=== PATIENT | female | born 1995 | race Hispanic/Latino ===

== ENCOUNTER 2025-08-06 05:19 | Inpatient (IN) | payer MEDICAID, OTHER ==
[2025-08-06] MEDS ORDERED: Tranexamic Acid 1,000 MG/10 ML VIAL IVP PRN (06:15)
[2025-08-06] MEDS ORDERED: Diphenoxylate HCl/Atropine Tablet PO PRN ×2 (06:15)
[2025-08-06] MEDS ORDERED: Carboprost 250 MCG/ML AMP IM PRN (06:15)
[2025-08-06] MEDS ORDERED: Oxytocin 30 units/NS 500 ML 500 ML IV SCH ×2 (06:15)
[2025-08-06] MEDS ORDERED: Acetaminophen 500 MG TAB PO PRN (06:15)
[2025-08-06] MEDS ORDERED: Methylergonovine 0.2 MG/ML VIAL IM PRN (06:15)
[2025-08-06] MEDS ORDERED: Lidocaine 1% (PF) 30 ML VIAL SC PRN (06:15)
[2025-08-06] MEDS ORDERED: HYDROcodone/Acetaminophen 5/325 mg Tablet PO PRN ×3 (06:15→20:51)
[2025-08-06] MEDS ORDERED: Ondansetron PF 4 MG/2 ML Vial IVP PRN ×3 (06:15→20:51)
[2025-08-06] MEDS ORDERED: hydrALAZINE 20 MG/ML VIAL SLOW IVP PRN ×2 (06:15→20:51)
[2025-08-06 06:40] VITALS: BMI 38.9
[2025-08-06 07:18] LABS: Hematocrit 33.1 % (34.9-44.5); Hemoglobin 11.2 g/dL (12.0-15.5); Mean Corpuscular Hemoglobin 26.9 pg (27.0-33.0); Mean Corpuscular Volume 79.4 fL (81.6-98.3); Platelet Count 207 10x3/uL (150-450); Red Blood Cell (RBC) Count 4.17 10x6/uL (3.90-5.03); White Blood Cell (WBC) Count 9.84 10x3/uL (3.5-10.5)
[2025-08-06] MEDS: Oxytocin 30 units/NS 500 ML 500 ML IV SCH (07:30)
[2025-08-06 07:32] LABS: Syphilis Antibody Index 0.09 S/CO (<1.00 Non-Reactive)
[2025-08-06 07:34] LABS: Hep B Surf Ag - L&D Non-Reactive S/CO (NonReactive)
[2025-08-06] MEDS: fentaNYL/Ropivacaine Epidural 100 ML ONE (11:00)
[2025-08-06] MEDS ORDERED: diphenhydrAMINE 50 MG/ML VIAL IVP PRN (12:49)
[2025-08-06] MEDS ORDERED: fentaNYL 2 mcg/Ropivacaine 0.2% Epidural 100 ML CADD EPIDURAL SCH (13:00)
[2025-08-06] MEDS ORDERED: Communication Order-Pharmacy FS SCH (13:00)
[2025-08-06] MEDS: Acetaminophen 325 MG TAB PO PRN (19:08)
[2025-08-06] MEDS: Ibuprofen 800 MG TAB PO PRN (19:08)
[2025-08-06] MEDS ORDERED: Bisacodyl 10 MG SUPP PR PRN (20:51)
[2025-08-06] MEDS ORDERED: Milk Of Magnesia 30 ML UDCUP PO PRN (20:51)
[2025-08-06] MEDS ORDERED: Lanolin Ointment 7 GM TUBE TOP PRN (20:51)
[2025-08-06] MEDS ORDERED: diphenhydrAMINE 25 MG CAP PO PRN (20:51)
[2025-08-06] MEDS ORDERED: Benzocaine-Menthol 82.5 ML CAN TOP PRN (20:51)
[2025-08-07] MEDS: Ferrous Sulfate 325 MG TAB PO SCH (09:01)
[2025-08-07] MEDS: Boostrix 0.5 ML (Tdap) VIAL (>/=7 yrs of age) IM ONE (09:01)
[2025-08-07] MEDS: Ibuprofen 800 MG TAB PO SCH (09:01)
[2025-08-07 15:59] VITALS: BP 122/84; TEMP 98.6
== END 2025-08-07 18:35 | disposition home or self-care (01) | DRG 807 ==
LOC: CSHLD 05:19 → CSHPP 20:25
PROVIDERS: ADMIT Family Medicine; ATTEND Family Medicine
PROC: 10E0XZZ Delivery of Products of Conception, External Approach (ICD-10-PCS; principal; 2025-08-06)
PROC: 10907ZC Drainage of Amniotic Fluid, Therapeutic from Products of Conception, Via Natural or Artificial Opening (ICD-10-PCS; 2025-08-06)
PROC: 10H07YZ Insertion of Other Device into Products of Conception, Via Natural or Artificial Opening (ICD-10-PCS; 2025-08-06)
DX: O99.214 Obesity complicating childbirth (principal); Z37.0 Single live birth; Z3A.39 39 weeks gestation of pregnancy
CPT/HCPCS: 36415; 36416; 51702; 85027; 86780; 86850; 86900; 86901; 87340; J2590; J7120